=== PATIENT | male | born 1980 | race Caucasian/White ===

== ENCOUNTER 2019-09-17 09:53 | Emergency (ER) | payer OTHER ==
[~2019-09-17] VITALS: Ht 175.3 cm; Wt 64.9 kg
[2019-09-17] MEDS ORDERED: CLINDAMYCIN HC300 MG PO (10:03)
[2019-09-17] MEDS ORDERED: HYDROCHLOROTHIA25 M2 (10:04)
[2019-09-17] MEDS ORDERED: FLONASE 0.05%50 MCG NARES (10:26)
[2019-09-17 10:31] VITALS: BP 142/67
== END 2019-09-17 10:36 | disposition home or self-care (01) ==
LOC: ER 09:53
DX: J34.89 Other specified disorders of nose and nasal sinuses (principal); R09.81 Nasal congestion; F17.210 Nicotine dependence, cigarettes, uncomplicated